=== PATIENT | male | born 1970 | race Caucasian/White ===

== ENCOUNTER 2020-06-16 21:47 | Emergency (ER) | payer SELFPAY ==
[~2020-06-16] VITALS: Ht 172.7 cm; Wt 81.6 kg
[2020-06-16 21:53] VITALS: Ht 172.7 cm; Wt 81.6 kg
[2020-06-16 22:53] VITALS: BP 146/66
== END 2020-06-16 22:54 | disposition home or self-care (01) ==
LOC: ED 21:47
DX: F41.9 Anxiety disorder, unspecified (principal)